=== PATIENT | female | born 1995 | race Hispanic/Latino ===

== ENCOUNTER 2017-11-25 13:52 | Emergency (ER) | payer SELFPAY | END 2017-11-25 14:50 | disposition home or self-care (01) | LOC: EDH 13:52 | DX: R11.2 Nausea with vomiting, unspecified (principal) | CPT/HCPCS: 99281 ==

== ENCOUNTER 2024-03-07 18:40 | Emergency (ER) | payer BC | END 2024-03-07 19:37 | disposition left against medical advice (07) | LOC: EDH 18:40 | DX: R10.9 Unspecified abdominal pain (principal); Z53.21 Procedure and treatment not carried out due to patient leaving prior to being seen by health care provider ==